=== PATIENT | female | born 1985 | race Two or more races ===

== ENCOUNTER 2016-11-29 16:37 | Emergency (ER) | payer MEDICAID ==
[~2016-11-29] VITALS: Ht 154.9 cm; Wt 63.5 kg
[2016-11-29 16:51] VITALS: BP 120/73
[2016-11-29] MEDS ORDERED: IBUP200C5 PO (16:56)
[2016-11-29] MEDS ORDERED: IBUPROFEN 600 MG TABLET PO ONE (17:56)
[2016-11-29] MEDS ORDERED: ALBUTEROL FS 2.5 MG/3 ML VIAL.NEB ONE (17:58)
[2016-11-29] MEDS: IBUPROFEN 600 MG TABLET PO ONE (17:59)
[2016-11-29] MEDS: ALBUTEROL FS 2.5 MG/3 ML VIAL.NEB NEB ONE (18:11)
== END 2016-11-29 18:19 | disposition home or self-care (01) ==
LOC: ER 16:44
DX: J11.1 Influenza due to unidentified influenza virus with other respiratory manifestations (principal); R05 Cough
CPT/HCPCS: 71010; 94640; 99283; A4606; Z7610